=== PATIENT | male | born 1985 | race Caucasian/White ===

== ENCOUNTER 2023-07-28 11:49 | Outpatient (CLI) | payer OTHER, SELFPAY ==
[2023-07-28 12:32] LABS: CRP < 0.5 mg/dL (<1.0); Erythrocyte Sedimentation Rate 15 mm/hr (0-20)
[2023-07-31 11:21] LABS: Endomysial Ab (IgA) Screen Negative (Negative)
[2023-08-19 12:42] LABS: Gliadin Gluten IgA <1.0 U/mL
== END 2023-07-28 11:50 | disposition home or self-care (01) ==
LOC: ANHLAB 11:51
PROVIDERS: Visit Provider Nurse Practitioner
DX: M79.18 Myalgia, other site (principal); K90.49 Malabsorption due to intolerance, not elsewhere classified; K92.89 Other specified diseases of the digestive system; R19.4 Change in bowel habit
CPT/HCPCS: 36415; 85652; 86038; 86140; 86255; 86364

== ENCOUNTER 2023-07-30 09:53 | Outpatient (NON) | payer OTHER, SELFPAY ==
[2023-08-04 03:21] LABS: H pylori Ag Stool Not Detected (Not Detected)
[2023-08-05 21:27] LABS: Calprotectin, Stool 13 mcg/g
== END 2023-07-30 09:54 | disposition home or self-care (01) ==
PROVIDERS: Visit Provider Nurse Practitioner
DX: R19.4 Change in bowel habit (principal); K90.49 Malabsorption due to intolerance, not elsewhere classified; K92.89 Other specified diseases of the digestive system; M79.18 Myalgia, other site; M25.50 Pain in unspecified joint
CPT/HCPCS: 83993; 87045; 87177; 87209; 87269; 87338; 87427; 87449

== ENCOUNTER 2023-08-07 07:41 | Outpatient (CLI) | payer OTHER, SELFPAY ==
--- NOTE | ~2023-08-07 | CT_ITS ---
IMPRESSION: 1. No CT correlate for the patient's symptoms. EXAMINATION: CT abdomen pelvis w con INDICATION: Altered bowel habits TECHNIQUE: Computed tomographic images of the abdomen and pelvis were obtained after the administrati on of 100 cc of Omnipaque 350 intravenous contrast. The dose-length product (DLP) was 283.86 mGy-cm. Automated exposure control and iterative reconstruction technique were employed. COMPARISON: None available FINDINGS: The lung bases are clear. The heart size is normal. The liver, spleen, pancreas, gallbladde r, and adrenal glands are normal. The kidneys are unremarkable. No pathologically enlarged abdominal or pelvic lymph nodes are identified. No free intraperitoneal gas or evidence of bowel obstruction. A moderate volume of colonic stool is present. The visualized osseous structures are unremarkable IMPRESSION: 1. No CT correlate for the patient's symptoms. Reviewed, dictated and finalized at location [facility]
== END 2023-08-07 07:42 | disposition home or self-care (01) ==
PROVIDERS: Visit Provider Nurse Practitioner
DX: R19.5 Other fecal abnormalities (principal); K92.89 Other specified diseases of the digestive system; K90.49 Malabsorption due to intolerance, not elsewhere classified; R19.4 Change in bowel habit; N50.819 Testicular pain, unspecified
CPT/HCPCS: 74177; Q9967

== ENCOUNTER 2023-08-10 07:38 | Day surgery (SDC) | payer OTHER, SELFPAY ==
--- NOTE | 2023-08-07 15:44 | PM.HPGS ---
History of Present Illness History of Present Illness Consent: Risks, benefits, and alternatives have been discussed and questions answered. Patient agrees to proceed with procedure. Chief complaint: Melena, Change in Bowel Habits, Malabsorption Narrative: Tobias Mendoza is a 38 year old male Who has had a change in bowel habits. He also has had occasions where he had blood in his stools beginning a couple of years ago. Most the time the blood is on tissue. He goes from having constipation to diarrhea. He has had an extensive workup to rule out inflammatory bowel disease, celiac disease and had a CT scan a couple of years ago that was unremarkable. C reactive protein is very mildly elevated. However calprotectin level is only 13. HE ALSO HAD A RECENTLY POSITIVE FIT TEST. because of alternating diet sedation he has tried changing his diet. He thinks that hQuinoa may be a problem. He has changed his breakfast,has switched to corn based cereal like corn checks instead of eggs. Review of Systems Review of Systems: All systems reviewed & are unremarkable except as noted in HPI and below PMFSH Past Medical History Medical History Altered bowel habits Elevated C-reactive protein (CRP) Gas bloat syndrome Gastrointestinal intolerance to foods Gluteal pain Hematochezia Joint pain Positive FIT (fecal immunochemical test) Testicular pain Family History Family History Father Hypertension Heart disease Sibling Cancer Social History Social History Smoking status: Never smoker Second hand tobacco smoke exposure: No Alcohol intake: current Alcohol use details: 6 Substance use: current Substance use type: does not use Living arrangements: with family Spiritual care concerns: No Meds Home Medications and Allergies Home Medications Medication Instructions Recorded Confirmed Type Lactobacillus 1 cap PO DAILY 08/04/23 08/10/23 History acidophilus-Bifidobac.animalis 2.5 billion cell capsule (Daily Probiotic) omega 8-pys-wvd-fish oil 1,200 mg 1 cap PO DAILY 08/04/23 08/10/23 History (144 mg-216 mg) capsule (Fish Oil) tumeric 100 mg-kim 150 mg-olive 1 cap PO DAILY 08/04/23 08/10/23 History 50 mg-oreg 150 mg-caprylate capsule Allergies Allergy/AdvReac Type Severity Reaction Status Date / Time No Known Allergies Allergy Verified 08/10/23 10:11 Exam Resp: Auscultation: clear to auscultation bilaterally Cardio: Rate: regular rate Rhythm: regular rhythm GI: GI Palp: Yes Soft to palpation and No Tenderness to palpation present (GI) Assessment and Plan Assessment and plan (1) Positive FIT (fecal immunochemical test): Code(s): R19.5 - Other fecal abnormalities Status: Acute Assessment and Plan: Colonoscopy with possible biopsy or polypectomy or cautery or injection of substances.
--- NOTE | 2023-08-10 09:06 | P.PNAN_ITS ---
Anes - Initial Pre Proc Eval Procedure: Operation Date: 08/10/23 13:00 Proposed Procedures p Colonoscopy - Chacho Aldana MD Date/Time: 08/10/23 09:06 Surgeon: Chacho Aldana MD Pre Op Diagnosis: Melena, Change in Bowel Habits, Malabsorption Patient Data Age: 38 Gender: M Height: 1.7 m Weight: 68.039 kg Allergies Allergy/AdvReac Type Severity Reaction Status Date / Time No Known Allergies Allergy Verified 08/10/23 10:11 Home Medications Medication Instructions Recorded Confirmed Type Lactobacillus 1 cap PO DAILY 08/04/23 08/10/23 History acidophilus-Bifidobac.animalis 2.5 billion cell capsule (Daily Probiotic) omega 6-fja-hzh-fish oil 1,200 mg 1 cap PO DAILY 08/04/23 08/10/23 History (144 mg-216 mg) capsule (Fish Oil) tumeric 100 mg-kim 150 mg-olive 1 cap PO DAILY 08/04/23 08/10/23 History 50 mg-oreg 150 mg-caprylate capsule Patient hx anesthesia problems: none Family hx anesthesia problems: none Results Review: All pre-operative results and documents have been reviewed as part of the pre- operative evaluation. [facility] Past Medical History Medical History Altered bowel habits Elevated C-reactive protein (CRP) Gas bloat syndrome Gastrointestinal intolerance to foods Gluteal pain Hematochezia Joint pain Positive FIT (fecal immunochemical test) Testicular pain Family History Family History Father Hypertension Heart disease Sibling Cancer Social History Social History Smoking status: Never smoker Second hand tobacco smoke exposure: No Alcohol intake: current Alcohol use details: 6 Substance use: current Substance use type: does not use Living arrangements: with family Spiritual care concerns: No Anes - Eval Final PreProcedure Day of Procedure 08/10/23 09:06 Patient weight: normal Heart: regular rate and rhythm Lungs: clear to auscultation and normal air movement Airway: Mallampati scale class II Neurological: alert and oriented Last oral intake: >/= 8 hours ASA classification: I Emergent: no Anesthetic plan: proceed Anesthesia type and monitoring: general GIVS and standard monitoring Results Review: All pre-operative results and documents have been reviewed as part of the pre- operative evaluation. Informed Consent: The patient's anesthetic plan and its attendant risks and benefits were discussed with the patient/family/POA. Questions were solicited and answers provided to the satisfaction of the patient/family/POA.
[2023-08-10 10:12] VITALS: BP 107/84; PULSE 42; RESP 16; TEMP 36.6; O2SAT 99
[2023-08-10] MEDS: LACTATED RINGERS 1,000 ML 150 ML IV CONT (10:24)
[2023-08-10 11:52] VITALS: BP 93/63; PULSE 49; RESP 14; O2SAT 98
--- NOTE | 2023-08-10 11:56 | WPDANESPN ---
Anes - Prog Note Post-Op Date/Time: 08/10/23 11:56 Cardiovascular status: normal Respiratory status: normal Airway patency: baseline Mental status: baseline Post-Op hydration status: normal Vital Signs: Last Vital Signs Temp 36.6 C 08/10/23 10:12 Pulse 42 L 08/10/23 10:12 Resp 16 08/10/23 10:12 BP 107/84 08/10/23 10:12 Pulse Ox 99 08/10/23 10:12 O2 Del Method Room Air 08/10/23 10:12 Pain Score (VAS): 0 I/O: Intake & Output 08/09/23 08/10/23 08/10/23 23:59 07:59 15:59 Intake Total 300 Balance 300 Post-procedural complaints: none Patient Feedback: Patient satisfied with anesthetic care. Other Findings: Patient vital signs back to baseline. Patient denies nausea and vomiting. Patient's pain under control. Patient OK for discharge.
[2023-08-10 12:00] VITALS: BP 93/64; PULSE 47; RESP 14; O2SAT 100
[2023-08-10 12:10] VITALS: BP 107/74; PULSE 41; RESP 16; O2SAT 100
[2023-08-10 12:18] VITALS: BP 118/78; PULSE 47; RESP 16; O2SAT 100
== END 2023-08-10 12:30 | disposition home or self-care (01) ==
PROVIDERS: Visit Provider Internal Medicine Gastroenterology
PROC: 0DJD8ZZ Inspection of Lower Intestinal Tract, Via Natural or Artificial Opening Endoscopic (ICD-10-PCS; CPT 45378; principal; 2023-08-10 13:00)
DX: R19.5 Other fecal abnormalities (principal); Z12.11 Encounter for screening for malignant neoplasm of colon
CPT/HCPCS: 45378